=== PATIENT | male | born 1935 | race Caucasian/White ===

== ENCOUNTER 2022-11-14 19:26 | Emergency (ER) | payer MEDICARE ==
[~2022-11-14] VITALS: Ht 172.7 cm; Wt 72.6 kg
[2022-11-14 19:26] VITALS: BP_SYST 136
[2022-11-14] MEDS ORDERED: iohexoL 350 mgI/mL, 100 ML INFUS..BTL IV ONE (19:42)
--- NOTE | 2022-11-14 20:05 | NUR ---
First contact with the pt. Per previous Rn, the pt's family calls for slurred speech. The pt at this time. is AAO x2, name, place. He states he does not know why he is here. He denies stroke symptoms at this time. Speech is clear at this time. He c/o leg swelling at this time. CT is done. Awaiting results at this time. No /sx of acute distress noted at this time.
[2022-11-14 20:24] LABS: BASOPHILS % (AUTO) 0.7 % (0.0-2.0); EOSINOPHILS # (AUTO) 0.4 K/uL (0.0-0.4); EOSINOPHILS % (AUTO) 6.2 % (0.0-4.0); HEMATOCRIT 31.4 % (36-54); HEMOGLOBIN 10.4 g/dL (14.0-18.0); LYMPHOCYTES # (AUTO) 1.4 K/uL (1.0-5.5); LYMPHOCYTES % (AUTO) 24.4 % (20.5-51.5); MEAN CORPUSCULAR HEMOGLOBIN 31 pg (27-31); MEAN CORPUSCULAR HGB CONC 33 % (32-36); MEAN CORPUSCULAR VOLUME 94 fL (79.0-98.0); MONOCYTES # (AUTO) 0.7 K/uL (0.0-1.0); MONOCYTES % (AUTO) 12.6 % (1.7-9.3); NEUTROPHILS # (AUTO) 3.2 K/uL (1.8-7.7); NEUTROPHILS % (AUTO) 56.1 % (40.0-70.0); PLATELET COUNT (AUTO) 177 K/uL (130-430); RED BLOOD CELL COUNT(AUTO) 3.35 MIL/uL (4.2-6.2); RED CELL DISTRIBUTION WIDTH 16.5 % (9.0-15.0); WHITE BLOOD COUNT (AUTO) 5.7 K/uL (4.8-10.8)
[2022-11-14 20:28] LABS: ANION GAP 9 (5-15); CALCIUM 8.2 mg/dL (8.4-11.0); CHLORIDE 101 mmol/L (98-107); CREATININE 1.19 mg/dL (0.55-1.30); GLUCOSE 109 mg/dL (70-99); UREA NITROGEN, BLOOD 35 mg/dL (8-21)
[2022-11-14 20:33] LABS: INR 2.3 (0.80-1.20); PROTHROMBIN TIME 22.8 SECS (9.5-12.5)
[2022-11-14 20:34] LABS: ALANINE AMINOTRANSFERASE 22 U/L (12-78); ALBUMIN 2.8 g/dL (3.4-4.8); ASPARTATE AMINOTRANSFERASE 29 U/L (10-37); TOTAL BILIRUBIN 0.7 mg/dL (0.0-1.0)
--- NOTE | 2022-11-14 21:04 | NUR ---
Son is at bedside. STates approximately 1730, the pt was leaning on the stove, said slurred sppech, unable to understand him. States lasted about 45 mins. States the pt's speech is back to baseline at this time. The son Chris Bryant, states the pt's confusion is baseline. No official diagnosis of dementia.
[2022-11-14] MEDS ORDERED: PRAM0.5T3 PO (21:09)
[2022-11-14] MEDS ORDERED: METH10OR PO (21:11)
[2022-11-14] MEDS ORDERED: LISI10TA29 PO (21:12)
[2022-11-14] MEDS ORDERED: WARF1TAB84 PO (21:12)
[2022-11-14] MEDS ORDERED: LIP40 PO (21:12)
[2022-11-14] MEDS ORDERED: METO25TA3 PO (21:13)
[2022-11-14] MEDS ORDERED: LEVO75CA5 (21:13)
[2022-11-14] MEDS ORDERED: TAMS-11 PO (21:14)
[2022-11-14] MEDS ORDERED: FURO20TA4 PO (21:14)
--- NOTE | 2022-11-14 23:23 | NUR ---
Per MD awaiting [place] for dispo. Resying quietly at this time. No s/sx of acute distress noted at this time. Son is at bedside.
--- NOTE | 2022-11-14 23:32 | NUR ---
Notified of troponin lab value of 242. No further orders received at this time.
--- NOTE | 2022-11-14 23:39 | NUR ---
Covid and urine samples obtained and sent to the lab.
[2022-11-15 00:02] LABS: BILIRUBIN,URINE NEGATIVE (NEGATIVE); BLOOD, URINE 1+ (NEGATIVE); CLARITY/URINE CLEAR (CLEAR); COLOR,URINE YELLOW (YELLOW); GLUCOSE,URINE NEGATIVE (NEGATIVE); KETONES,URINE NEGATIVE (NEGATIVE); LEUKOCYTE ESTERASE ,URINE NEGATIVE (NEGATIVE); NITRITE, URINE NEGATIVE (NEGATIVE); PH,URINE 5.5 (5.0-8.0); PROTEIN URINE NEGATIVE (NEGATIVE); UROBILINOGEN,URINE 0.2 (0.2-1.0)
--- NOTE | 2022-11-15 00:03 | NUR ---
Report given to Chiara Cauesy RN at [phone]. Accepting MD is
[2022-11-15 00:34] LABS: BACTERIA,URINE None Seen /HPF (None Seen); WBC,URINE 0-3 /HPF (0-3)
--- NOTE | 2022-11-15 01:36 | NUR ---
Medic 1- 343 at bedside.
[2022-11-15 01:40] VITALS: BP_SYST 107
== END 2022-11-15 01:40 | disposition short-term general hospital (02) ==
LOC: SED 19:26
DX: G45.9 Transient cerebral ischemic attack, unspecified (principal); R77.8 Other specified abnormalities of plasma proteins; R29.810 Facial weakness; I11.0 Hypertensive heart disease with heart failure; I50.9 Heart failure, unspecified; Z88.6 Allergy status to analgesic agent; Z79.899 Other long term (current) drug therapy; Z20.822 Contact with and (suspected) exposure to COVID-19
CPT/HCPCS: 99291; 70496; 71045; 87426; 80053; 81000; 85025; 85610; 85730; 86886; 86900; 86901; 84484; 36415; 93005; 70498; 99292; 70450; 76376; Q9967